=== PATIENT | male | born 2000 | race Caucasian/White ===

== ENCOUNTER 2024-03-08 04:18 | Emergency (ER) | payer BC, SELFPAY ==
[2024-03-08 04:20] VITALS: BP 122/83; BMI 23.1
[2024-03-08 04:24] VITALS: BP 119/74
[2024-03-08] MEDS: ZOFRAN ODT (ORALLY DISINTEGRATING) 4 MG PO (04:34)
--- NOTE | 2024-03-08 04:44 | ED.GENMED ---
History of Present Illness
General
Chief Complaint: Alcohol Problem
Source: patient and family
Exam Limitations: none
Time Seen by Provider: 03/08/24 04:23
Nursing documentation reviewed up to this point in time: agreed with
History of Present Illness
History of Present Illness:
23-year-old male with nausea vomiting after night of drinking, perhaps greater than 10 episodes, has vomited for about 30 minutes, accompanied by his mother does not drink very often no other substances
Past History
Past History
ED Past Medical History: GERD (controlled with Prilosec)
ED Past Surgical History: None
Social History
Tobacco: Non-smoker
Alcohol: Occasional
Drug: None
Personal: Single
Living: with family
Employment: Employed
Family History
Family History: Other (brother had testicular torsion age 15)
Review of Systems
Review of Systems
All Other Systems: Not applicable
Constitutional: Denies fever or fatigue
EENT: Reports no symptoms
Respiratory: Reports no symptoms
ABD/GI: Reports nausea and vomiting
Musculoskeletal: Reports no symptoms
Skin: Reports no symptoms
Phy Exam
Physical Exam
Physical Exam:
Physical Exam
General: 23 male cooperative
Neck: Lips are slightly dry
Heart: s1/s2 regular rate and rhythm, no murmur. equal radial pulses.
Lungs: no acute respiratory distress.
Abdomen: Nontender
Neuro: alert and oriented. no focal neurological deficits
Skin: no rash
Psychiatric: well kept. interactive and cooperative
Extremities: no edema.
Scores
Withdrawal Assessment of Alcohol
Withdrawal Assessment Completed?: No
Course
Orders/Labs/Results
Orders:
Orders
03/08/24 04:32
Ondansetron Orally Disint [Zofran Odt (Orally Disintegrating)] 4 mg .ROUTE .STK-MED ONE
03/08/24 04:33
Ondansetron Orally Disint [Zofran Odt (Orally Disintegrating)] 4 mg PO NOW STA
03/08/24 05:28
Acetaminophen [Tylenol] 1,000 mg PO NOW STA
03/08/24 05:29
Acetaminophen [Tylenol] 1,000 mg .ROUTE .STK-MED ONE
Vital Signs
Initial and Last Documented VS:
Initial Vital Signs
Temp Pulse Resp BP Pulse Ox
98 F 97 16 122/83 100
03/08/24 04:20 03/08/24 04:20 03/08/24 04:20 03/08/24 04:20 03/08/24 04:20
Last Documented Vital Signs
Temp Pulse Resp BP Pulse Ox
98 F 97 16 114/59 97
03/08/24 04:20 03/08/24 04:20 03/08/24 04:20 03/08/24 05:00 03/08/24 05:30
MDM/Problems Addressed
Differential Diagnosis Includes:
Dehydration alcohol intoxication alcohol withdrawal doubt pancreatitis perhaps reflux
MDM/Problems Addressed:
Nausea vomiting after alcohol
*Pulse Oximetry
Patient hypoxic: no
*Critical Care Note
Total Time (30-74mins, 75-104mins- exclusive of procedures): Not Applicable
Update Note
Update Note:
Update patient is nontoxic clear mental status will try Zofran ODT and then some p.o. ice chips advance slowly as tolerated he does have his mother with him to drive him home
ED Attending Note
-
Portions of this chart may have been created with voice recognition software.� Occasional wrong word or��sound alike� substitutions may have occurred due to the inherent limitations of voice recognition software.
Discharge Plan
Departure
Patient Disposition: Home (Routine Discharge)
Date of Disposition: 03/08/24
Time of Disposition: 05:32
Patient with high blood pressure during this ER visit?: No
Condition: Good
Discharge Problem:
Alcohol abuse, Dehydration
Instructions: Alcohol Intoxication ED
Prescriptions:
New
ondansetron 4 mg tablet,disintegrating
4 mg PO Q8H PRN (Reason: nausea and vomiting) Qty: 10 0RF
No Action
Advil
400 mg PO Q8H PRN (Reason: pain)
fexofenadine [Ellie] 30 MG tablet
30 mg PO DAILY
omeprazole magnesium [Prilosec OTC] 20 MG tablet,delayed release (DR/EC)
20 mg PO DAILY
Referrals:
UNKNOWN - PT DOES,NOT KNOW [Unknown Provider] -
Activity Restrictions/Additional Instructions:
Limit your alcohol intake, bland diet for the next day or so you can use Zofran every 4-6 hours for nausea vomiting
Interventions
Interventions:
*Risk Screen - Suicide Last Done: 03/08/24 04:20
*General Assessment Last Done: 03/08/24 04:36
*Neglect/Abuse Screening Last Done: 03/08/24 04:20
ED- Fall Risk Assessment Last Done: 03/08/24 04:20
*ED COVID-19 Vaccine History Last Done: 03/08/24 04:36
*Nursing Disposition Last Done: 03/08/24 05:38
ED- Neurological Assessment Last Done: 03/08/24 04:29
ED-Psychological Assessment Last Done: 03/08/24 04:29
Discharge Date and Time
Discharge Date/Time: 03/08/24 05:38
Print Language: VENEZUELAN
[2024-03-08 05:00] VITALS: BP 114/59
[2024-03-08] MEDS: TYLENOL 1000 MG PO (05:31)
== END 2024-03-08 05:38 | disposition home or self-care (01) ==
LOC: EMR 04:18
PROVIDERS: EMERGENCY PHYSICIAN Emergency Medicine; FAMILY PHYSICIAN Internal Medicine
DX: F10.10 Alcohol abuse, uncomplicated (principal); E86.0 Dehydration; K21.9 Gastro-esophageal reflux disease without esophagitis
CPT/HCPCS: 99282; 99283